=== PATIENT | male | born 1940 | race American Indian/Alaskan Native ===

== ENCOUNTER 2017-02-10 10:24 | Outpatient (CLI) | payer MEDICARE, OTHER ==
--- NOTE | 2017-02-10 10:50 | XRay Report ---
Left knee 2 views: History: Knee pain. Findings: Minimal narrowing of the medial and patellofemoral compartment knee joint. Sclerotic articular surfaces with degenerative changes. Large osteophytes at the anterosuperior and anteroinferior patella. No soft tissue calcification or joint effusion. 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
== END 2017-02-10 10:25 | disposition home or self-care (01) ==
LOC: SPVIMAG 10:24
PROVIDERS: ATTEND Orthopaedic Surgery Sports Medicine
DX: M17.12 Unilateral primary osteoarthritis, left knee (principal)